=== PATIENT | male | born 1960 | race American Indian/Alaskan Native ===

== ENCOUNTER 2018-01-13 05:09 | Emergency (ER) | payer BC ==
[2018-01-13 05:54] LABS: Basophils % (Auto) 0.3 % (0.0-1.8); Eosinophils # (Auto) 0.1 K/mm3 (0.0-0.4); Eosinophils % (Auto) 1.4 % (0.0-4.3); Hematocrit 42.6 % (35.5-45.6); Hemoglobin 14.4 gm/dl (11.8-15.2); Lymphocytes # (Auto) 1.4 K/mm3 (1.2-5.4); Lymphocytes % (Auto) 30.1 % (13.4-35.0); Mean Corpuscular HGB Conc 34 % (32-34); Mean Corpuscular Hemoglobin 28 pg (28-32); Mean Corpuscular Volume 84 fl (84-94); Monocytes # (Auto) 0.5 K/mm3 (0.0-0.8); Monocytes % (Auto) 11.4 % (0.0-7.3); Platelet Count 206 K/mm3 (140-440); Red Blood Count 5.09 M/mm3 (3.65-5.03); Red Cell Distribution Width 13.4 % (13.2-15.2)
[2018-01-13 06:07] LABS: BUN/Creatinine Ratio 13; Blood Urea Nitrogen 9 mg/dL (9-20); Calcium 8.7 mg/dL (8.4-10.2); Hemolysis Index 9
--- NOTE | 2018-01-13 06:24 | Cat Scan Report ---
FINAL REPORT EXAM: CT HEAD/BRAIN WO CON HISTORY: Fall TECHNIQUE: CT imaging acquired through the head without intravenous contrast. Transaxial reformations are provided. PRIORS: None. FINDINGS: The ventricles, cisterns and sulci are within normal limits. No intraparenchymal or extra-axial mass, hemorrhage, or mass effect. Phipps and white-matter differentiation is within normal limits for patient age. Normal spherical shape of the globes. No significant abnormality involving the imaged portions of the paranasal sinuses and mastoid air cells. No skull or facial fracture visualized. IMPRESSION: No acute intracranial abnormality.
--- NOTE | 2018-01-13 06:49 | XRay Report ---
FINAL REPORT EXAM: XR SPINE LUMBOSACRAL 2-3V HISTORY: fall , reported spine injury 10 years ago TECHNIQUE: Three views lumbar spine performed seated in wheelchair PRIORS: None. FINDINGS: There is rightward convexity of the lumbar spine centered at about L2-L3. Anterior listhesis at L4-L5 without definite spondylolysis. Lower lumbar facet arthropathy is present. Mild lower lumbar intervertebral disc space narrowing and associated endplate spondylosis. Vertebral body heights are preserved. Mild physiologic anterior wedging at T12. No acute fracture identified. IMPRESSION: Vertebral body heights are preserved, and rightward convexity of the lumbar spine and anterior listhesis at L4-L5 are likely chronic in nature. No acute lumbar spine fractures are seen. Consider CT or MRI for further evaluation as warranted.
[2018-01-13] MEDS ORDERED: ULTRAM PO ONE (08:09)
[2018-01-13] MEDS ORDERED: FLEXERIL PO ONE (08:10)
--- NOTE | 2018-01-13 08:15 | Emergency Department Report ---
ED Seizure HPI - General Chief Complaint: Fall Stated Complaint: BACK PAIN Time Seen by Provider: 01/13/18 08:02 Source: patient Mode of arrival: Ambulatory Limitations: No Limitations - History of Present Illness Initial Comments: 57 yo male presents with witnessed seizure. heard patient call out "oh". His eyes rolled back into his head. HE fell to floor with generalized shaking. No urinary incontinence. Shaking lasted 3 minutes. HE was confused after episode. Patient appeared dazed and restless. EMS called by . Elevated BG 225 according to . 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 He took dilatin and phenobarbital at that time. He has not had a sz in 20 years. He does not take any medications. He has chronic back pain in the bilateral flanks, worse with movement with stiffness. Back pain began on Tuesday. Worse after fall/seizure today. He has chronic discomfort due to "ulcers". He changed coverage from [employer] to [employer] in November. No PCP. MD Complaint: seizure -: Sudden, minutes(s) (3) Description of Episode: tonic-clonic movement, post-event confusion Duration of Episode: 3 -: minutes(s) Witnessed:: Yes Trauma: No Seizure History: other (hx of seizures 20 years ago related to drug abuse) Place: home Possible Precipitating Event: none Associated Symptoms: confusion (after the incident) - Related Data Home Medications Medication Instructions Recorded Confirmed Last Taken Omeprazole 1 tab PO DAILY 09/15/16 09/15/16 09/15/16 Ranitidine HCl [Zantac 150 MG TAB] 150 mg PO DAILY 09/15/16 09/15/16 09/15/16 Previous Rx's Medication Instructions Recorded Last Taken Type traMADol [Ultram 50 MG tab] 50 mg PO Q6HR PRN #10 tablet 09/15/16 Unknown Rx Ondansetron [Zofran Odt] 4 mg PO Q8HR PRN #14 tab.rapdis 09/20/17 Unknown Rx Penicillin V Potassium 500 mg PO Q6HR #28 tablet 09/20/17 Unknown Rx traMADol [Ultram] 50 mg PO Q6HR PRN #14 tablet 09/20/17 Unknown Rx HYDROcodone/APAP 5-325 [[place] 1 each PO Q6HR PRN #10 tablet 01/13/18 Unknown Rx 5/325] Omeprazole 40 mg PO DAILY 30 Days #30 02/23/18 Unknown Rx capsule. Pantoprazole [Protonix TAB] 40 mg PO QDAY 30 Days #30 tablet 01/13/18 Unknown Rx Allergies Allergy/AdvReac Type Severity Reaction Status Date / Time No Known Allergies Allergy Verified 09/20/17 16:24 ED Review of Systems ROS: Stated complaint: BACK PAIN Other details as noted in HPI Comment: All other systems reviewed and negative Constitutional: denies: fever, malaise Respiratory: denies: cough Cardiovascular: denies: chest pain ED Past Medical Hx - Past Medical History Additional medical history: stomach ulcer - Social History Smoking Status: Never Smoker Substance Use Type: Alcohol - Medications Home Medications: Home Medications Medication Instructions Recorded Confirmed Last Taken Type Omeprazole 1 tab PO DAILY 09/15/16 09/15/16 09/15/16 History Ranitidine HCl [Zantac 150 MG TAB] 150 mg PO DAILY 09/15/16 09/15/16 09/15/16 History traMADol [Ultram 50 MG tab] 50 mg PO Q6HR PRN #10 tablet 09/15/16 Unknown Rx Ondansetron [Zofran Odt] 4 mg PO Q8HR PRN #14 tab.rapdis 09/20/17 Unknown Rx Penicillin V Potassium 500 mg PO Q6HR #28 tablet 09/20/17 Unknown Rx traMADol [Ultram] 50 mg PO Q6HR PRN #14 tablet 09/20/17 Unknown Rx HYDROcodone/APAP 5-325 [[place] 1 each PO Q6HR PRN #10 tablet 01/13/18 Unknown Rx 5/325] Omeprazole 40 mg PO DAILY 30 Days #30 01/13/18 Unknown Rx capsule. Pantoprazole [Protonix TAB] 40 mg PO QDAY 30 Days #30 tablet 01/13/18 Unknown Rx ED Physical Exam - General Limitations: No Limitations General appearance: alert, in no apparent distress - Head Head exam: Present: atraumatic, normocephalic - Eye Eye exam: Present: normal appearance - ENT ENT exam: Present: normal exam, mucous membranes moist - Neck Neck exam: Present: normal inspection. Absent: meningismus - Respiratory Respiratory exam: Present: normal lung sounds bilaterally. Absent: respiratory distress, wheezes, rales, rhonchi - Cardiovascular Cardiovascular Exam: Present: regular rate, normal rhythm, normal heart sounds. Absent: bradycardia, tachycardia, systolic murmur, diastolic murmur, rubs, gallop - GI/Abdominal GI/Abdominal exam: Present: soft, normal bowel sounds. Absent: distended, tenderness, guarding, rebound - Rectal Rectal exam: Present: deferred - Extremities Exam Extremities exam: Present: normal inspection - Back Exam Back exam: Present: normal inspection, muscle spasm, paraspinal tenderness. Absent: CVA tenderness (R), CVA tenderness (L), vertebral tenderness - Expanded Back Exam Expanded Back exam: Negative Straight Leg Raising: Left, Right - Neurological Exam Neurological exam: Present: alert, oriented X3 - Psychiatric Psychiatric exam: Present: normal affect, normal mood - Skin Skin exam: Present: warm, dry, intact, normal color. Absent: rash ED Course Vital Signs 01/13/18 01/13/18 01/13/18 05:15 07:54 07:55 Temperature 98.3 F Pulse Rate 91 H Respiratory 18 Rate Blood Pressure 119/82 Blood Pressure 150/90 [Left] O2 Sat by Pulse 97 98 98 Oximetry 01/13/18 01/13/18 08:00 08:47 Temperature Pulse Rate Respiratory 18 18 Rate Blood Pressure Blood Pressure [Left] O2 Sat by Pulse 98 Oximetry ED Medical Decision Making - Lab Data Result diagrams: 01/13/18 05:36 01/13/18 05:36 Laboratory Results - last 24 hr 01/13/18 01/13/18 05:36 05:36 WBC 4.8 RBC 5.09 H Hgb 14.4 Hct 42.6 MCV 84 MCH 28 MCHC 34 RDW 13.4 Plt Count 206 Lymph % (Auto) 30.1 [place] % (Auto) 11.4 H Eos % (Auto) 1.4 Baso % (Auto) 0.3 Lymph # 1.4 [place] # 0.5 Eos # 0.1 Baso # 0.0 Seg Neutrophils % 56.8 Seg Neutrophils # 2.7 Sodium 143 Potassium 3.9 Chloride 104.6 Carbon Dioxide 26 Anion Gap 16 BUN 9 Creatinine 0.7 L Estimated GFR > 60 BUN/Creatinine Ratio 13 Glucose 152 H Calcium 8.7 Vital Signs (72 hours) 01/13/18 01/13/18 01/13/18 05:15 07:54 07:55 Temperature 98.3 F Pulse Rate 91 H Respiratory 18 Rate Blood Pressure 119/82 Blood Pressure 150/90 [Left] O2 Sat by Pulse 97 98 98 Oximetry 01/13/18 08:00 Temperature Pulse Rate Respiratory 18 Rate Blood Pressure Blood Pressure [Left] O2 Sat by Pulse 98 Oximetry - EKG Data 01/13/18 09:08 EKG obtained at 0902 Normal sinus rhythm rate of 60 normal axis normal intervals no ST elevation no signs of ischemia no signs of pericarditis - Radiology Data Radiology results: report reviewed - Medical Decision Making Seizure: I spoke with [facility] neurologist Dr. Pickard who recommended oral Dilantin load in the ED. Also recommended Dilantin prescription since apparently it did control his seizures in the past. He recommended outpatient neurology follow-up. Dr. Pickard also told me to inform the patient that he is not allowed to drive for 6 months. I informed patient he is not allowed to swim or cook unattended. He is also should avoid ladders. Patient was very upset about these restrictions especially around driving. He has to support his family financially. I recommended urgent neurology follow-up. I encouraged him to call neurologist today. Musculoskeletal Back pain: norco, flexeril prescriptions PUD: rx: omeprazole and pantoprazole Critical care attestation.: If time is entered above; I have spent that time in minutes in the direct care of this critically ill patient, excluding procedure time. ED Disposition Clinical Impression: Seizure, Back pain Disposition: DC-01 TO HOME OR SELFCARE Is pt being admited?: No Does the pt Need Aspirin: No Condition: Stable Instructions: Recurrent Seizures Adult (ED), Acute Low Back Pain (ED) Additional Instructions: You are not allowed to drive for 6 months or until cleared by a neurologist. You should not swim or cook alone. You should not work at tall heights such as on a ladder, roof. Prescriptions: HYDROcodone/APAP 5-325 [[place] 5/325] 1 each PO Q6HR PRN #10 tablet PRN Reason: Pain Omeprazole 40 mg PO DAILY 30 Days #30 capsule. Pantoprazole [Protonix TAB] 40 mg PO QDAY 30 Days #30 tablet Referrals: PRIMARY CARE, [Primary Care Provider] - 3-5 Days Forms: Work/School Release Form(ED) Time of Disposition: 09:51
--- NOTE | 2018-01-13 09:02 | Cat Scan Report ---
CT LUMBAR SPINE WITHOUT CONTRAST INDICATION: Abnormal x-rays. COMPARISON: Lumbar spine radiographs from earlier today. FINDINGS: Noncontrast axial, sagittal and coronal CT reconstructions through the lumbar spine demonstrate fairly preserved vertebral body stature, alignment and disc heights. Mild L3-L5 degenerative spurring. L5-S1 vacuum disc phenomena noted. Mild T12 degenerative spurring and minimal chronic wedging also incidentally noted. Moderate bilateral L4-5 degenerative changes. Slight SI joint degenerative changes as well, left more than right. Normal paraspinal soft tissues. Few aortoiliac atherosclerotic calcifications. CONCLUSION: No acute lumbar spine CT abnormality with few degenerative changes noted, as described. Please correlate. Thank you for the opportunity to participate in this patient's care.
[2018-01-13] MEDS ORDERED: DILANTIN PO ONE (09:51)
[2018-01-13 10:01] VITALS: BP 123/79
== END 2018-01-13 10:17 | disposition home or self-care (01) ==
LOC: ED 05:09
DX: R56.9 Unspecified convulsions (principal); M54.9 Dorsalgia, unspecified; G89.29 Other chronic pain
CPT/HCPCS: 36415; 70450; 72100; 72131; 80048; 85025; 93005; 93010

== ENCOUNTER 2018-05-16 21:26 | Emergency (ER) | payer OTHER, BC ==
[2018-05-16 21:38] VITALS: BP 126/81
[2018-05-17] MEDS ORDERED: BOOSTRIX IM ONE (02:16)
--- NOTE | 2018-05-17 02:27 | Emergency Department Report ---
ED Extremity Problem HPI - General Chief complaint: Extremity Injury, Lower Stated complaint: STEPPED ON NAIL, LT FOOT Time Seen by Provider: 05/17/18 02:13 Source: patient Mode of arrival: Ambulatory Limitations: No Limitations - History of Present Illness Initial comments: 57-year-old -[place] male comes to the emergency room stating that he stepped on a nail while at work doing his work boots. Patient is requesting a tetanus shot. Patient has no other complaints has no past medical history currently takes no medications on a daily basis. MD Complaint: extremity pain Location: left, lower extremity History of Same: No -: Yes myalgia Radiation: none Severity scale (0 -10): 3 Quality: sharp Consistency: intermittent Improves with: rest Worsens with: weight bearing Associated Symptoms: denies other symptoms - Related Data Home Medications Medication Instructions Recorded Confirmed Last Taken Omeprazole 1 tab PO DAILY 09/15/16 09/15/16 09/15/16 Ranitidine HCl [Zantac 150 MG TAB] 150 mg PO DAILY 09/15/16 09/15/16 09/15/16 Previous Rx's Medication Instructions Recorded Last Taken Type traMADol [Ultram 50 MG tab] 50 mg PO Q6HR PRN #10 tablet 09/15/16 Unknown Rx Ondansetron [Zofran Odt] 4 mg PO Q8HR PRN #14 tab.rapdis 09/20/17 Unknown Rx Penicillin V Potassium 500 mg PO Q6HR #28 tablet 09/20/17 Unknown Rx traMADol [Ultram] 50 mg PO Q6HR PRN #14 tablet 09/20/17 Unknown Rx Cyclobenzaprine [Flexeril] 10 mg PO TID PRN #30 tablet 01/13/18 Unknown Rx HYDROcodone/APAP 5-325 [[place] 1 each PO Q6HR PRN #10 tablet 01/13/18 Unknown Rx 5/325] Omeprazole 40 mg PO DAILY 30 Days #30 01/13/18 Unknown Rx capsule. Pantoprazole [Protonix TAB] 40 mg PO QDAY 30 Days #30 tablet 01/13/18 Unknown Rx Phenytoin Sodium Extended 300 mg PO QHS 30 Days #90 capsule 01/13/18 Unknown Rx [Dilantin] Cephalexin [Keflex] 500 mg PO BID 7 Days #14 capsule 05/17/18 Unknown Rx Allergies Allergy/AdvReac Type Severity Reaction Status Date / Time No Known Allergies Allergy Verified 09/20/17 16:24 ED Review of Systems ROS: Stated complaint: STEPPED ON NAIL, LT FOOT Other details as noted in HPI Comment: All other systems reviewed and negative Musculoskeletal: other ED Past Medical Hx - Past Medical History Previous Medical History?: No Additional medical history: stomach ulcer - Surgical History Past Surgical History?: No - Social History Smoking Status: Current Every Day Smoker Substance Use Type: None - Medications Home Medications: Home Medications Medication Instructions Recorded Confirmed Last Taken Type Omeprazole 1 tab PO DAILY 09/15/16 09/15/16 09/15/16 History Ranitidine HCl [Zantac 150 MG TAB] 150 mg PO DAILY 09/15/16 09/15/16 09/15/16 History traMADol [Ultram 50 MG tab] 50 mg PO Q6HR PRN #10 tablet 09/15/16 Unknown Rx Ondansetron [Zofran Odt] 4 mg PO Q8HR PRN #14 tab.rapdis 09/20/17 Unknown Rx Penicillin V Potassium 500 mg PO Q6HR #28 tablet 09/20/17 Unknown Rx traMADol [Ultram] 50 mg PO Q6HR PRN #14 tablet 09/20/17 Unknown Rx Cyclobenzaprine [Flexeril] 10 mg PO TID PRN #30 tablet 01/13/18 Unknown Rx HYDROcodone/APAP 5-325 [[place] 1 each PO Q6HR PRN #10 tablet 01/13/18 Unknown Rx 5/325] Omeprazole 40 mg PO DAILY 30 Days #30 01/13/18 Unknown Rx capsule. Pantoprazole [Protonix TAB] 40 mg PO QDAY 30 Days #30 tablet 01/13/18 Unknown Rx Phenytoin Sodium Extended 300 mg PO QHS 30 Days #90 capsule 01/13/18 Unknown Rx [Dilantin] Cephalexin [Keflex] 500 mg PO BID 7 Days #14 capsule 05/17/18 Unknown Rx ED Physical Exam - General Limitations: No Limitations General appearance: alert, in no apparent distress - ENT ENT exam: Present: mucous membranes moist - Expanded Lower Extremity Exam Left Foot/Toe exam: Present: puncture wound (left foot between first and second carpal) Neuro vascular tendon exam: Present: no vascular compromise. Absent: abnormal cap refill, extremity cold to touch ED Course Vital Signs 05/16/18 21:36 Temperature 98.4 F Pulse Rate 78 Respiratory 18 Rate Blood Pressure 126/81 O2 Sat by Pulse 100 Oximetry ED Medical Decision Making - Radiology Data Radiology results: report reviewed No bony abnormalities no radial opaque foreign body - Medical Decision Making Assessment evaluated by this provider fast track. Tetanus shot ordered. X-ray of left foot has been ordered. Critical care attestation.: If time is entered above; I have spent that time in minutes in the direct care of this critically ill patient, excluding procedure time. ED Disposition Clinical Impression: Puncture wound of left foot Qualifiers: Encounter type: initial encounter Qualified Code(s): S91.332A - Puncture wound without foreign body, left foot, initial encounter Disposition: TO HOME OR SELFCARE Is pt being admited?: No Does the pt Need Aspirin: No Condition: Stable Instructions: Puncture Wound (ED) Additional Instructions: Please complete antibiotics as prescribed. Please take [id number] Tylenol or Motrin for pain management. If his symptoms persist or gets worse please follow-up with your primary care provider. Prescriptions: Cephalexin [Keflex] 500 mg PO BID 7 Days #14 capsule Referrals: PRIMARY CARE [Primary Care Provider] - 3-5 Days [facility] [Provider Group] - 3-5 Days
--- NOTE | 2018-05-17 02:32 | XRay Report ---
FINAL REPORT EXAM: XR FOOT 2V LT HISTORY: stepped on a nail through his work boots LT FOOT COMPARISON: None available. FINDINGS: Two views of the left foot obtained. Moderate narrowing hypertrophic spurring of the 1st MTP joint. Mild degenerative changes the 5th MTP joint. Tiny plantar calcaneal spur. No acute fracture dislocation. No radiopaque foreign body. IMPRESSION: No acute bony abnormality. No radiopaque foreign body.
== END 2018-05-17 03:10 | disposition home or self-care (01) ==
LOC: ED 21:26
DX: S91.332A Puncture wound without foreign body, left foot, initial encounter (principal); F17.200 Nicotine dependence, unspecified, uncomplicated; W22.8XXA Striking against or struck by other objects, initial encounter; Y93.89 Activity, other specified; Y99.8 Other external cause status; Y92.89 Other specified places as the place of occurrence of the external cause
CPT/HCPCS: 90471; 90715

== ENCOUNTER 2018-06-12 18:23 | Emergency (ER) | payer BC, OTHER ==
[2018-06-12 18:54] VITALS: BP 123/88
[2018-06-12] MEDS ORDERED: REGLAN PO ONE (23:08)
[2018-06-12] MEDS ORDERED: DELTASONE PO ONE (23:08)
[2018-06-12] MEDS ORDERED: ULTRAM PO ONE (23:08)
[2018-06-12] MEDS ORDERED: BENADRYL PO ONE (23:08)
--- NOTE | 2018-06-12 23:33 | Emergency Department Report ---
ED Animal Bite HPI - General Chief Complaint: Animal Bite Stated Complaint: GOT BITE BY SPIDER AT WORK Time Seen by Provider: 06/12/18 23:08 Source: patient Mode of arrival: Ambulatory Limitations: No Limitations - History of Present Illness Initial Comments: Patient's age 7-year-old -[place] male status post spider versus insect sting, states burning itching and swelling shortness of breath no wheezing no dizziness no lightheadedness or nausea vomiting . Pain is 4/10 relieved by nothing exacerbated by nothing. Complaint: other (insect sting /bite) Onset/Timin -: days(s) Location: back Animal: other (spider) Animal Control Notified: No Mechanism: other (sting/bite ) Pain Description: sharp, burning Severity scale (0 -10): 4 Context: other Associated Symptoms: rash. denies: erythema, discharge from wound, bleeding, fever, loss of consciousness, cough, headache, diaphoresis, shortness of breath - Related Data Patient Tetanus UTD: Yes Home Medications Medication Instructions Recorded Confirmed Last Taken Omeprazole 1 tab PO DAILY 09/15/16 09/15/16 09/15/16 Ranitidine HCl [Zantac 150 MG TAB] 150 mg PO DAILY 09/15/16 09/15/16 09/15/16 Previous Rx's Medication Instructions Recorded Last Taken Type traMADol [Ultram 50 MG tab] 50 mg PO Q6HR PRN #10 tablet 09/15/16 Unknown Rx Ondansetron [Zofran Odt] 4 mg PO Q8HR PRN #14 tab.rapdis 09/20/17 Unknown Rx Penicillin V Potassium 500 mg PO Q6HR #28 tablet 09/20/17 Unknown Rx traMADol [Ultram] 50 mg PO Q6HR PRN #14 tablet 09/20/17 Unknown Rx Cyclobenzaprine [Flexeril] 10 mg PO TID PRN #30 tablet 01/13/18 Unknown Rx HYDROcodone/APAP 5-325 [[place] 1 each PO Q6HR PRN #10 tablet 01/13/18 Unknown Rx 5/325] Omeprazole 40 mg PO DAILY 30 Days #30 01/13/18 Unknown Rx capsule. Pantoprazole [Protonix TAB] 40 mg PO QDAY 30 Days #30 tablet 01/13/18 Unknown Rx Phenytoin Sodium Extended 300 mg PO QHS 30 Days #90 capsule 01/13/18 Unknown Rx [Dilantin] Cephalexin [Keflex] 500 mg PO BID 7 Days #14 capsule 05/17/18 Unknown Rx Metoclopramide [Reglan] 10 mg PO TID #21 tab 06/12/18 Unknown Rx diphenhydrAMINE [Benadryl CAP] 25 mg PO Q8HR PRN #21 capsule 06/12/18 Unknown Rx predniSONE [Deltasone] 40 mg PO QDAY #10 tab 06/12/18 Unknown Rx Allergies Allergy/AdvReac Type Severity Reaction Status Date / Time No Known Allergies Allergy Verified 06/12/18 18:54 ED Review of Systems ROS: Stated complaint: GOT BITE BY SPIDER AT WORK Other details as noted in HPI Constitutional: denies: chills, fever Eyes: denies: eye pain, eye discharge, vision change ENT: denies: ear pain, throat pain Respiratory: denies: cough, shortness of breath, wheezing Cardiovascular: denies: chest pain, palpitations Endocrine: no symptoms reported Gastrointestinal: denies: abdominal pain, nausea, diarrhea Genitourinary: denies: urgency, dysuria Musculoskeletal: denies: back pain, joint swelling, arthralgia Skin: lesions (insect sting back ), pruritus Neurological: denies: headache, weakness, paresthesias Psychiatric: denies: anxiety, depression Hematological/Lymphatic: denies: easy bleeding, easy bruising ED Past Medical Hx - Past Medical History Previous Medical History?: No Additional medical history: stomach ulcer - Surgical History Past Surgical History?: Yes Additional Surgical History: R thumb - Social History Smoking Status: Current Every Day Smoker Substance Use Type: None - Medications Home Medications: Home Medications Medication Instructions Recorded Confirmed Last Taken Type Omeprazole 1 tab PO DAILY 09/15/16 09/15/16 09/15/16 History Ranitidine HCl [Zantac 150 MG TAB] 150 mg PO DAILY 09/15/16 09/15/16 09/15/16 History traMADol [Ultram 50 MG tab] 50 mg PO Q6HR PRN #10 tablet 09/15/16 Unknown Rx Ondansetron [Zofran Odt] 4 mg PO Q8HR PRN #14 tab.rapdis 09/20/17 Unknown Rx Penicillin V Potassium 500 mg PO Q6HR #28 tablet 09/20/17 Unknown Rx traMADol [Ultram] 50 mg PO Q6HR PRN #14 tablet 09/20/17 Unknown Rx Cyclobenzaprine [Flexeril] 10 mg PO TID PRN #30 tablet 01/13/18 Unknown Rx HYDROcodone/APAP 5-325 [[place] 1 each PO Q6HR PRN #10 tablet 01/13/18 Unknown Rx 5/325] Omeprazole 40 mg PO DAILY 30 Days #30 01/13/18 Unknown Rx capsule.dr Pantoprazole [Protonix TAB] 40 mg PO QDAY 30 Days #30 tablet 01/13/18 Unknown Rx Phenytoin Sodium Extended 300 mg PO QHS 30 Days #90 capsule 01/13/18 Unknown Rx [Dilantin] Cephalexin [Keflex] 500 mg PO BID 7 Days #14 capsule 05/17/18 Unknown Rx Metoclopramide [Reglan] 10 mg PO TID #21 tab 06/12/18 Unknown Rx diphenhydrAMINE [Benadryl CAP] 25 mg PO Q8HR PRN #21 capsule 06/12/18 Unknown Rx predniSONE [Deltasone] 40 mg PO QDAY #10 tab 06/12/18 Unknown Rx ED Physical Exam - General Limitations: No Limitations General appearance: alert, in no apparent distress - Head Head exam: Present: atraumatic, normocephalic - Eye Eye exam: Present: normal appearance - ENT ENT exam: Present: mucous membranes moist - Neck Neck exam: Present: normal inspection - Respiratory Respiratory exam: Present: normal lung sounds bilaterally. Absent: respiratory distress - Cardiovascular Cardiovascular Exam: Present: regular rate, normal rhythm. Absent: systolic murmur, diastolic murmur, rubs, gallop - GI/Abdominal GI/Abdominal exam: Present: soft, normal bowel sounds - Rectal Rectal exam: Present: deferred - Extremities Exam Extremities exam: Present: normal inspection, full ROM, normal capillary refill. Absent: tenderness, pedal edema, joint swelling, calf tenderness - Back Exam Back exam: Present: normal inspection, tenderness, rash noted (right lateral midback mild erythema mild swelling no drainage no fever ). Absent: CVA tenderness (R), CVA tenderness (L), muscle spasm, paraspinal tenderness, vertebral tenderness - Neurological Exam Neurological exam: Present: alert, oriented X3, CN II-XII intact, normal gait, reflexes normal. Absent: motor sensory deficit - Psychiatric Psychiatric exam: Present: normal affect, normal mood - Skin Skin exam: Present: warm, dry, intact, normal color, rash, erythema (mild erythema swelling less 1 cm pruritis no drainage no fever ), urticaria. Absent : cyanosis, diaphoretic, vesicles, petechiae, pallor, abrasion, ecchymosis ED Course Vital Signs 06/12/18 18:51 Temperature 98.5 F Pulse Rate 68 Respiratory 16 Rate Blood Pressure 123/88 O2 Sat by Pulse 99 Oximetry Critical care attestation.: If time is entered above; I have spent that time in minutes in the direct care of this critically ill patient, excluding procedure time. ED Disposition Clinical Impression: Insect bite or sting Disposition: - TO HOME OR SELFCARE Is pt being admited?: No Does the pt Need Aspirin: No Condition: Good Instructions: Insect Bite or Sting (ED) Prescriptions: diphenhydrAMINE [Benadryl CAP] 25 mg PO Q8HR PRN #21 capsule PRN Reason: itching allergies Metoclopramide [Reglan] 10 mg PO TID #21 tab predniSONE [Deltasone] 40 mg PO QDAY #10 tab Referrals: [facility] [Outside] - 3-5 Days Forms: Work/School Release Form(ED) Time of Disposition: 23:38
== END 2018-06-12 23:45 | disposition home or self-care (01) ==
LOC: ED 18:23
DX: T63.301A Toxic effect of unspecified spider venom, accidental (unintentional), initial encounter (principal); F17.200 Nicotine dependence, unspecified, uncomplicated; Y93.89 Activity, other specified; Y99.0 Civilian activity done for income or pay; Y92.89 Other specified places as the place of occurrence of the external cause
CPT/HCPCS: 99282; J7512; 99283

== ENCOUNTER 2022-03-08 05:56 | Emergency (ER) | payer SELFPAY ==
[2022-03-08] MEDS ORDERED: FLUORESCEIN 1 MG STRIP OP ONE (10:00)
[2022-03-08] MEDS ORDERED: TETRACAINE 0.5% OPHTH SOLN 4ML OU ONE (10:00)
--- NOTE | 2022-03-08 10:00 | Emergency Department Report ---
ED Eye Problem HPI - General Chief complaint: Eye Problems Stated complaint: EYE ISSUES Time Seen by Provider: 03/08/22 09:52 Source: patient Mode of arrival: Ambulatory Limitations: No Limitations - History of Present Illness Initial comments: Patient is a 61-year-old male that comes to the emergency room with a red left eye. He states he noticed it after leaving [place] on Tuesday. He denies any trauma. He has no contact lenses or lens implants. He has no tearing. His vision is normal. He has no pain in the ER. Patient is not on blood thinners. chief complaint: eye redness -: Sudden, days(s) Place: home If Injury: none Associated Symptoms: none Treatments Prior to Arrival: none - Related Data Home Medications Medication Instructions Recorded Confirmed Last Taken Omeprazole 1 tab PO DAILY 09/15/16 09/15/16 09/15/16 raNITIdine HCl [Zantac 150 MG TAB] 150 mg PO DAILY 09/15/16 09/15/16 09/15/16 Previous Rx's Medication Instructions Recorded Last Taken Type traMADoL [Ultram 50 MG tab] 50 mg PO Q6HR PRN #10 tablet 09/15/16 Unknown Rx Ondansetron [Zofran Odt] 4 mg PO Q8HR PRN #14 tab.rapdis 09/20/17 Unknown Rx Penicillin V Potassium 500 mg PO Q6HR #28 tablet 09/20/17 Unknown Rx traMADoL [Ultram] 50 mg PO Q6HR PRN #14 tablet 09/20/17 Unknown Rx Cyclobenzaprine [Flexeril] 10 mg PO TID PRN #30 tablet 01/13/18 Unknown Rx HYDROcodone/APAP 5-325 [[place] 1 each PO Q6HR PRN #10 tablet 01/13/18 Unknown Rx 5/325] Omeprazole 40 mg PO DAILY 30 Days #30 01/13/18 Unknown Rx capsule. Pantoprazole [Protonix TAB] 40 mg PO QDAY 30 Days #30 tablet 01/13/18 Unknown Rx Phenytoin Sodium Extended 300 mg PO QHS 30 Days #90 capsule 01/13/18 Unknown Rx [Dilantin] cephALEXin [Keflex] 500 mg PO BID 7 Days #14 capsule 05/17/18 Unknown Rx Metoclopramide [Reglan] 10 mg PO TID #21 tab 06/12/18 Unknown Rx diphenhydrAMINE [Benadryl CAP] 25 mg PO Q8HR PRN #21 capsule 06/12/18 Unknown Rx predniSONE [Deltasone] 40 mg PO QDAY #10 tab 06/12/18 Unknown Rx Erythromycin [Erythromycin Ophth 0.5 inch OS Q4H #5 day 03/08/22 Unknown Rx Oint] Allergies Allergy/AdvReac Type Severity Reaction Status Date / Time No Known Allergies Allergy Verified 06/12/18 18:54 ED Review of Systems ROS: Stated complaint: EYE ISSUES Other details as noted in HPI Comment: All other systems reviewed and negative ED Past Medical Hx - Past Medical History Previous Medical History?: Yes Additional medical history: stomach ulcer - Surgical History Past Surgical History?: Yes Additional Surgical History: R thumb - Family History Family history: no significant - Social History Smoking Status: Current Every Day Smoker Substance Use Type: None - Medications Home Medications: Home Medications Medication Instructions Recorded Confirmed Last Taken Type Omeprazole 1 tab PO DAILY 09/15/16 09/15/16 09/15/16 History raNITIdine HCl [Zantac 150 MG TAB] 150 mg PO DAILY 09/15/16 09/15/16 09/15/16 History traMADoL [Ultram 50 MG tab] 50 mg PO Q6HR PRN #10 tablet 09/15/16 Unknown Rx Ondansetron [Zofran Odt] 4 mg PO Q8HR PRN #14 tab.rapdis 09/20/17 Unknown Rx Penicillin V Potassium 500 mg PO Q6HR #28 tablet 09/20/17 Unknown Rx traMADoL [Ultram] 50 mg PO Q6HR PRN #14 tablet 09/20/17 Unknown Rx Cyclobenzaprine [Flexeril] 10 mg PO TID PRN #30 tablet 01/13/18 Unknown Rx HYDROcodone/APAP 5-325 [[place] 1 each PO Q6HR PRN #10 tablet 01/13/18 Unknown Rx 5/325] Omeprazole 40 mg PO DAILY 30 Days #30 01/13/18 Unknown Rx capsule. Pantoprazole [Protonix TAB] 40 mg PO QDAY 30 Days #30 tablet 01/13/18 Unknown Rx Phenytoin Sodium Extended 300 mg PO QHS 30 Days #90 capsule 01/13/18 Unknown Rx [Dilantin] cephALEXin [Keflex] 500 mg PO BID 7 Days #14 capsule 05/17/18 Unknown Rx Metoclopramide [Reglan] 10 mg PO TID #21 tab 06/12/18 Unknown Rx diphenhydrAMINE [Benadryl CAP] 25 mg PO Q8HR PRN #21 capsule 06/12/18 Unknown Rx predniSONE [Deltasone] 40 mg PO QDAY #10 tab 06/12/18 Unknown Rx Erythromycin [Erythromycin Ophth 0.5 inch OS Q4H #5 day 03/08/22 Unknown Rx Oint] ED Physical Exam - General Limitations: No Limitations General appearance: alert, in no apparent distress - Head Head exam: Present: atraumatic, normocephalic - Eye Eye exam: Present: normal appearance, PERRL, EOMI - Expanded Eye Exam Expanded Eyelids: Erythema: Left Sclera/Conjunctival: Hemorrhage: Left - ENT ENT exam: Present: mucous membranes moist - Neck Neck exam: Present: normal inspection - Respiratory Respiratory exam: Present: normal lung sounds bilaterally. Absent: respiratory distress - Cardiovascular Cardiovascular Exam: Present: regular rate, normal rhythm. Absent: systolic murmur, diastolic murmur, rubs, gallop - GI/Abdominal GI/Abdominal exam: Present: soft, normal bowel sounds - Rectal Rectal exam: Present: deferred - Extremities Exam Extremities exam: Present: normal inspection - Back Exam Back exam: Present: normal inspection - Neurological Exam Neurological exam: Present: alert, oriented X3 - Psychiatric Psychiatric exam: Present: normal affect, normal mood - Skin Skin exam: Present: warm, dry, intact, normal color. Absent: rash ED Course Vital Signs 03/08/22 03/08/22 06:00 11:21 Temperature 98.2 F Pulse Rate 68 54 L Respiratory 18 15 Rate Blood Pressure 128/79 Blood Pressure 125/80 [Right] O2 Sat by Pulse 100 100 Oximetry ED Medical Decision Making - Medical Decision Making Vital Signs 03/08/22 03/08/22 06:00 11:21 Temperature 98.2 F Pulse Rate 68 54 L Respiratory 18 15 Rate Blood Pressure 128/79 Blood Pressure 125/80 [Right] O2 Sat by Pulse 100 100 Oximetry RNs have been asked to do visual acuity. No increased fluorescein stain uptake on exam. No foreign body noted Patient has a subconjunctival hemorrhage of the left eye. Patient being discharged home with discharge plan of care including diet, activities, medications and follow-up. He verbalizes understanding of discharge plan. - Differential Diagnosis Some conjunctival hemorrhage first conjunctivitis versus abrasion versus fb Critical care attestation.: If time is entered above; I have spent that time in minutes in the direct care of this critically ill patient, excluding procedure time. ED Disposition Clinical Impression: Subconjunctival hemorrhage Qualifiers: Laterality: left Qualified Code(s): H11.32 - Conjunctival hemorrhage, left eye Disposition: HOME / SELF CARE / HOMELESS Is pt being admited?: No Does the pt Need Aspirin: No Condition: Stable Instructions: Subconjunctival Hemorrhage Additional Instructions: Medication as ordered today Follow-up with eye doctor if you have any problems. Referral below Warm compresses will help Motrin or Tylenol for pain Try not to rub your eye Prescriptions: Erythromycin [Erythromycin Ophth Oint] 0.5 inch OS Q4H #5 day Referrals: PONCHO PEDERSEN MD [Primary Care Provider] - 3-5 Days MIKE LIVINGSTON MD [Staff Physician] - 3-5 Days Forms: Work/School Release Form(ED) Time of Disposition: 11:01
[2022-03-08] MEDS ORDERED: ERYTHROMYCIN 5 MG/1 GM OPHTH OINT OS SCH (10:30)
[2022-03-08 11:22] VITALS: BP 125/80
== END 2022-03-08 12:46 | disposition home or self-care (01) ==
LOC: ED 05:56
DX: H11.32 Conjunctival hemorrhage, left eye (principal); F17.200 Nicotine dependence, unspecified, uncomplicated; Z79.899 Other long term (current) drug therapy
CPT/HCPCS: 99282; 99283

== ENCOUNTER 2022-04-18 11:03 | Emergency (ER) | payer SELFPAY ==
[2022-04-18 11:32] VITALS: BP 117/88
[2022-04-18 12:17] LABS: Bilirubin,Urine NEG (Negative); Blood,Urine NEG (Negative); Color,Urine Yellow (Yellow); Mucus,Urine FEW /HPF; Protein,Urine <15 mg/dL mg/dL (Negative); Urobilinogen,Urine < 2.0 mg/dL (<2.0)
[2022-04-18 13:14] LABS: Basophils % (Auto) 0.1 % (0.0-1.8); Eosinophils # (Auto) 0.1 K/mm3 (0.0-0.4); Eosinophils % (Auto) 1.9 % (0.0-4.3); Hematocrit 43.2 % (35.5-45.6); Hemoglobin 14.3 gm/dl (11.8-15.2); Lymphocytes % (Auto) 39.9 % (13.4-35.0); Mean Corpuscular HGB Conc 33 % (32-34); Mean Corpuscular Volume 86 fl (84-94); Monocytes # (Auto) 0.4 K/mm3 (0.0-0.8); Monocytes % (Auto) 8.1 % (0.0-7.3); Platelet Count 229 K/mm3 (140-440); Red Blood Count 5.05 M/mm3 (3.65-5.03); Red Cell Distribution Width 13.3 % (13.2-15.2)
[2022-04-18 13:33] LABS: Alanine Aminotransferase 18 units/L (7-56); Albumin 4.5 g/dL (3.9-5); Blood Urea Nitrogen 15 mg/dL (9-20); Calcium 9.1 mg/dL (8.4-10.2); Hemolysis Index 7
[2022-04-18 13:43] LABS: BUN/Creatinine Ratio 21
--- NOTE | 2022-04-18 13:57 | Emergency Department Report ---
ED Male HPI - General Chief complaint: Urogenital-Male Stated complaint: ABD PAIN/BURNING ON URINATION Time Seen by Provider: 04/18/22 11:34 Source: patient Mode of arrival: Ambulatory Limitations: No Limitations - History of Present Illness Initial comments: This is a 61-year-old male nontoxic, well nourished in appearance, no acute signs of distress presents to the ED with c/o of dysuria and urinary frequency x several days. Patient also stated the past several months had unintentional weight loss. Patient denies any penile discharge, bleeding, ulcers or lesions. Patient denies any back pain. Patient denies any lower or abdominal pain. Patient denies any nausea, vomiting, chest pain, shortness of breathe, fever, chills, headache, back pain, numbness, tingling, stiff neck. Patient denies any other urinary symptoms. Patient denies any allergies or PMH. MD Complaint: dysuria -: days(s) Radiation: none Severity: mild Severity scale (0 -10): 3 Quality: burning Consistency: intermittent Improves with: none Worsens with: urination dysuria. denies: discharge, swelling, mass, rash, urinary retention, blood in urine, fever, nausea/vomiting, incontinence - Related Data Home Medications Medication Instructions Recorded Confirmed Last Taken Omeprazole 1 tab PO DAILY 09/15/16 09/15/16 09/15/16 raNITIdine HCl [Zantac 150 MG TAB] 150 mg PO DAILY 09/15/16 09/15/16 09/15/16 Previous Rx's Medication Instructions Recorded Last Taken Type traMADoL [Ultram 50 MG tab] 50 mg PO Q6HR PRN #10 tablet 09/15/16 Unknown Rx Ondansetron [Zofran Odt] 4 mg PO Q8HR PRN #14 tab.rapdis 09/20/17 Unknown Rx Penicillin V Potassium 500 mg PO Q6HR #28 tablet 09/20/17 Unknown Rx traMADoL [Ultram] 50 mg PO Q6HR PRN #14 tablet 09/20/17 Unknown Rx Cyclobenzaprine [Flexeril] 10 mg PO TID PRN #30 tablet 01/13/18 Unknown Rx HYDROcodone/APAP 5-325 [[place] 1 each PO Q6HR PRN #10 tablet 01/13/18 Unknown Rx 5/325] Omeprazole 40 mg PO DAILY 30 Days #30 01/13/18 Unknown Rx capsule. Pantoprazole [Protonix TAB] 40 mg PO QDAY 30 Days #30 tablet 01/13/18 Unknown Rx Phenytoin Sodium Extended 300 mg PO QHS 30 Days #90 capsule 01/13/18 Unknown Rx [Dilantin] cephALEXin [Keflex] 500 mg PO BID 7 Days #14 capsule 05/17/18 Unknown Rx Metoclopramide [Reglan] 10 mg PO TID #21 tab 06/12/18 Unknown Rx diphenhydrAMINE [Benadryl CAP] 25 mg PO Q8HR PRN #21 capsule 06/12/18 Unknown Rx predniSONE [Deltasone] 40 mg PO QDAY #10 tab 06/12/18 Unknown Rx Erythromycin [Erythromycin Ophth 0.5 inch OS Q4H #5 day 03/08/22 Unknown Rx Oint] Allergies Allergy/AdvReac Type Severity Reaction Status Date / Time No Known Allergies Allergy Verified 06/12/18 18:54 ED Review of Systems ROS: Stated complaint: ABD PAIN/BURNING ON URINATION Other details as noted in HPI Comment: All other systems reviewed and negative Constitutional: denies: chills, fever Eyes: denies: eye pain, eye discharge, vision change ENT: denies: ear pain, throat pain Respiratory: denies: cough, shortness of breath, wheezing Cardiovascular: denies: chest pain, palpitations Endocrine: no symptoms reported Gastrointestinal: denies: abdominal pain, nausea, diarrhea Genitourinary: dysuria, frequency. denies: urgency, hematuria, discharge, testicular pain, testicular mass Musculoskeletal: denies: back pain, joint swelling, arthralgia Skin: denies: rash, lesions Neurological: denies: headache, weakness, paresthesias Psychiatric: denies: anxiety, depression Hematological/Lymphatic: denies: easy bleeding, easy bruising ED Past Medical Hx - Past Medical History Previous Medical History?: Yes Additional medical history: stomach ulcer, GERD - Surgical History Additional Surgical History: R thumb - Social History Smoking Status: Current Every Day Smoker - Medications Home Medications: Home Medications Medication Instructions Recorded Confirmed Last Taken Type Omeprazole 1 tab PO DAILY 09/15/16 09/15/16 09/15/16 History raNITIdine HCl [Zantac 150 MG TAB] 150 mg PO DAILY 09/15/16 09/15/16 09/15/16 History traMADoL [Ultram 50 MG tab] 50 mg PO Q6HR PRN #10 tablet 09/15/16 Unknown Rx Ondansetron [Zofran Odt] 4 mg PO Q8HR PRN #14 tab.rapdis 09/20/17 Unknown Rx Penicillin V Potassium 500 mg PO Q6HR #28 tablet 09/20/17 Unknown Rx traMADoL [Ultram] 50 mg PO Q6HR PRN #14 tablet 09/20/17 Unknown Rx Cyclobenzaprine [Flexeril] 10 mg PO TID PRN #30 tablet 01/13/18 Unknown Rx HYDROcodone/APAP 5-325 [[place] 1 each PO Q6HR PRN #10 tablet 01/13/18 Unknown Rx 5/325] Omeprazole 40 mg PO DAILY 30 Days #30 01/13/18 Unknown Rx capsule. Pantoprazole [Protonix TAB] 40 mg PO QDAY 30 Days #30 tablet 01/13/18 Unknown Rx Phenytoin Sodium Extended 300 mg PO QHS 30 Days #90 capsule 01/13/18 Unknown Rx [Dilantin] cephALEXin [Keflex] 500 mg PO BID 7 Days #14 capsule 05/17/18 Unknown Rx Metoclopramide [Reglan] 10 mg PO TID #21 tab 06/12/18 Unknown Rx diphenhydrAMINE [Benadryl CAP] 25 mg PO Q8HR PRN #21 capsule 06/12/18 Unknown Rx predniSONE [Deltasone] 40 mg PO QDAY #10 tab 06/12/18 Unknown Rx Erythromycin [Erythromycin Ophth 0.5 inch OS Q4H #5 day 03/08/22 Unknown Rx Oint] ED Physical Exam - General Limitations: No Limitations General appearance: alert, in no apparent distress - Head Head exam: Present: atraumatic, normocephalic - Eye Eye exam: Present: normal appearance - Neck Neck exam: Present: normal inspection, full ROM. Absent: lymphadenopathy - Respiratory Respiratory exam: Absent: respiratory distress - Cardiovascular Cardiovascular Exam: Present: normal rhythm - GI/Abdominal GI/Abdominal exam: Present: soft, normal bowel sounds. Absent: distended, tenderness, guarding, rebound, rigid, diminished bowel sounds - Extremities Exam Extremities exam: Present: normal inspection, full ROM, normal capillary refill. Absent: tenderness - Back Exam Back exam: Present: normal inspection, full ROM. Absent: tenderness, CVA ten derness (R), CVA tenderness (L), muscle spasm, paraspinal tenderness, vertebral tenderness, rash noted - Neurological Exam Neurological exam: Present: alert, oriented X3, normal gait - Psychiatric Psychiatric exam: Present: normal affect, normal mood - Skin Skin exam: Present: warm, dry, intact, normal color. Absent: rash ED Course Vital Signs 04/18/22 11:25 Temperature 97.8 F Pulse Rate 65 Respiratory 12 Rate Blood Pressure 117/88 O2 Sat by Pulse 100 Oximetry - Reevaluation(s) Reevaluation #1: 04/18/22 13:55 Patient is speaking in full sentences with no signs of distress noted. ED Medical Decision Making - Lab Data Result diagrams: 04/18/22 12:00 04/18/22 12:00 Lab Results 04/18/22 04/18/22 04/18/22 Range/Units 11:39 12:00 12:00 WBC 5.0 (4.5-11.0) K/mm3 RBC 5.05 H (3.65-5.03) M/mm3 Hgb 14.3 (11.8-15.2) gm/dl Hct 43.2 (35.5-45.6) % MCV 86 (84-94) fl MCH 28 (28-32) pg MCHC 33 (32-34) % RDW 13.3 (13.2-15.2) % Plt Count 229 (140-440) K/mm3 Lymph % (Auto) 39.9 H (13.4-35.0) % Lewis % (Auto) 8.1 H (0.0-7.3) % Eos % (Auto) 1.9 (0.0-4.3) % Baso % (Auto) 0.1 (0.0-1.8) % Lymph # (Auto) 2.0 (1.2-5.4) K/mm3 Lewis # (Auto) 0.4 (0.0-0.8) K/mm3 Eos # (Auto) 0.1 (0.0-0.4) K/mm3 Baso # (Auto) 0.0 (0.0-0.1) K/mm3 Seg Neutrophils % 50.0 (40.0-70.0) % Seg Neutrophils # 2.5 (1.8-7.7) K/mm3 Sodium 138 (137-145) mmol/L Potassium 4.7 (3.6-5.0) mmol/L Chloride 103.2 (98-107) mmol/L Carbon Dioxide 26 (22-30) mmol/L Anion Gap 14 mmol/L BUN 15 (9-20) mg/dL Creatinine 0.7 L (0.8-1.3) mg/dL Estimated GFR > 60 ml/min BUN/Creatinine Ratio 21 % Glucose 135 H (75-100) mg/dL Calcium 9.1 (8.4-10.2) mg/dL Total Bilirubin 0.30 (0.1-1.2) mg/dL AST 23 (5-40) units/L ALT 18 (7-56) units/L Alkaline Phosphatase 56 (35-129) units/L Total Protein 7.4 (6.3-8.2) g/dL Albumin 4.5 (3.9-5) g/dL Albumin/Globulin Ratio 1.6 % Urine Color Yellow (Yellow) Urine Turbidity Clear (Clear) Urine pH 6.0 (5.0-7.0) Ur Specific [place] 1.016 (1.003-1.030) Urine Protein <15 mg/dl (Negative) mg/dL Urine Glucose (UA) Neg (Negative) mg/dL Urine Ketones Neg (Negative) mg/dL Urine Blood Neg (Negative) Urine Nitrite Neg (Negative) Urine Bilirubin Neg (Negative) Urine Urobilinogen < 2.0 (<2.0) mg/dL Ur Leukocyte Esterase Neg (Negative) Urine WBC (Auto) 6.0 (0.0-6.0) /HPF Urine RBC (Auto) 2.0 (0.0-6.0) /HPF Urine Mucus Few /HPF - Medical Decision Making 61-year-old male that presents with dysuria. Patient is stable and was examined by me. Patient does not have any CVA tenderness. No signs or symptoms of pyelonephritis. Pending GC results and instructed patient to return in 3-5 days for results. Patient was instructed to Follow-up with a primary care doctor in 3-5 days or if symptoms worsen and continue return to emergency room as soon as possible. At time of discharge, the patient does not seem toxic or ill in appearance. No acute signs of distress noted. Patient agrees to discharge treatment plan of care. No further questions noted by the patient. Critical care attestation.: If time is entered above; I have spent that time in minutes in the direct care of this critically ill patient, excluding procedure time. ED Disposition Clinical Impression: Dysuria, Urinary frequency, Weight loss Disposition: 01 HOME / SELF CARE / HOMELESS Is pt being admited?: No Does the pt Need Aspirin: No Condition: Stable Instructions: Dysuria Additional Instructions: Follow-up with a primary care doctor in 3-5 days or if symptoms worsen and continue return to emergency room as soon as possible. Referrals: PRIMARY MD MARLENI [Referring] - 3-5 Days PONCHO PEDERSEN MD [Staff Physician] - 3-5 Days Time of Disposition: 13:57
== END 2022-04-18 14:00 | disposition home or self-care (01) ==
LOC: ED 11:03
DX: R30.0 Dysuria (principal); R39.15 Urgency of urination; R35.0 Frequency of micturition; R63.4 Abnormal weight loss; K21.9 Gastro-esophageal reflux disease without esophagitis; F17.200 Nicotine dependence, unspecified, uncomplicated; Z79.899 Other long term (current) drug therapy
CPT/HCPCS: 36415; 80053; 81001; 85025; 87591; 99283

== ENCOUNTER 2022-04-21 15:32 | Outpatient (CLI) | payer OTHER ==
--- NOTE | 2022-04-21 16:44 | XRay Report ---
XR foot 2V LT INDICATION / CLINICAL INFORMATION: LEFT FOOT SWELLING. COMPARISON: None available. FINDINGS: BONES/JOINT(S): No acute fracture or subluxation. 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 No focal bone erosions or focal osteopenia to suggest inflammatory arthropathy. SOFT TISSUES: No significant abnormality. ADDITIONAL FINDINGS: None. Signer Name: David Brooks MD Signed: 04/21/2022 4:39 PM Workstation Name: [id number]
--- NOTE | 2022-04-21 16:44 | XRay Report ---
LUMBAR SPINE 5 VIEWS INDICATION / CLINICAL INFORMATION: LOWER SPINE PAIN. COMPARISON: None available. FINDINGS: BONES / JOINT(S): No acute fracture or subluxation. Moderate generalized spondylosis with grade 1 deg enerative anterolisthesis at L4-5. SOFT TISSUES: No significant abnormality. ADDITIONAL FINDINGS: None. Signer Name: David Brooks MD Signed: 04/21/2022 4:39 PM Workstation Name: [id number]
== END 2022-04-21 15:33 | disposition home or self-care (01) ==
LOC: XRAY 15:32
PROVIDERS: ATTEND Internal Medicine
DX: M19.072 Primary osteoarthritis, left ankle and foot (principal); M47.816 Spondylosis without myelopathy or radiculopathy, lumbar region
CPT/HCPCS: 72110

== ENCOUNTER 2022-05-23 13:55 | Emergency (ER) | payer SELFPAY ==
[2022-05-23 15:19] VITALS: BP 125/86
--- NOTE | 2022-05-23 15:28 | Event Note ---
ED Screening Note Date of service: 05/23/22 Time: 15:27 ED Screening Note: Patient presents with complaints of frequency in urination, weight loss, excessive thirst, bodyaches and pain for more than 2 weeks States history of diabetes and discontinue taking his metformin No chest pain or shortness of breath per patient Denies fever This initial assessment/diagnostic orders/clinical plan/treatment(s) is/are subject to change based on patients health status, clinical progression and re-assessment by fellow clinical providers in the ED. Further treatment and workup at subsequent clinical providers discretion. Patient/guardian urged not to elope from the ED as their condition may be serious if not clinically assessed and managed. Initial orders include: Labs
[2022-05-23 16:03] LABS: Basophils % (Auto) 0.5 % (0.0-1.8); Eosinophils # (Auto) 0.1 K/mm3 (0.0-0.4); Eosinophils % (Auto) 2.3 % (0.0-4.3); Hematocrit 42.4 % (35.5-45.6); Hemoglobin 14.3 gm/dl (11.8-15.2); Lymphocytes # (Auto) 1.8 K/mm3 (1.2-5.4); Lymphocytes % (Auto) 42.9 % (13.4-35.0); Mean Corpuscular HGB Conc 34 % (32-34); Mean Corpuscular Volume 86 fl (84-94); Monocytes # (Auto) 0.5 K/mm3 (0.0-0.8); Monocytes % (Auto) 11.6 % (0.0-7.3); Platelet Count 212 K/mm3 (140-440); Red Blood Count 4.96 M/mm3 (3.65-5.03); Red Cell Distribution Width 13.1 % (13.2-15.2)
[2022-05-23 16:26] LABS: Alanine Aminotransferase 24 units/L (7-56); Albumin 4.6 g/dL (3.9-5); BUN/Creatinine Ratio 23; Blood Urea Nitrogen 18 mg/dL (9-20); Calcium 9.4 mg/dL (8.4-10.2); Hemolysis Index 8
[2022-05-23 16:55] LABS: Bilirubin,Urine Negative (Negative); Blood,Urine Negative (Negative); Color,Urine Straw (Yellow); Protein,Urine <15 mg/dL mg/dL (Negative); Urobilinogen,Urine < 2.0 mg/dL (<2.0)
--- NOTE | 2022-05-23 20:37 | Emergency Department Report ---
ED General Adult HPI - General Chief complaint: Medical Clearance Stated complaint: CRAMPS/WEIGHT LOSS/FREQUENT URINATION Time Seen by Provider: 05/23/22 15:26 Source: patient Mode of arrival: Ambulatory Limitations: No Limitations - History of Present Illness Initial comments: 61-year-old male with no metabolic or oncologic past medical history presents emergency department complaining OF A several day history of polyuria ,polydipsia, myalgia, weight loss of unknown etiology. He denies any urinary hesitancy decreased urinary flow prostate location pain he reports no hemoptysis no hematemesis hematochezia no hematuria no fever, chills, sweats -: Gradual Severity scale (0 -10): 7 Improves with: none Worsens with: none Associated Symptoms: denies other symptoms, loss of appetite, malaise. denies: chest pain, cough, diaphoresis - Related Data Home Medications Medication Instructions Recorded Confirmed Last Taken Omeprazole 1 tab PO DAILY 09/15/16 09/15/16 09/15/16 raNITIdine HCl [Zantac 150 MG TAB] 150 mg PO DAILY 09/15/16 09/15/16 09/15/16 Previous Rx's Medication Instructions Recorded Last Taken Type traMADoL [Ultram 50 MG tab] 50 mg PO Q6HR PRN #10 tablet 09/15/16 Unknown Rx Ondansetron [Zofran Odt] 4 mg PO Q8HR PRN #14 tab.rapdis 09/20/17 Unknown Rx Penicillin V Potassium 500 mg PO Q6HR #28 tablet 09/20/17 Unknown Rx traMADoL [Ultram] 50 mg PO Q6HR PRN #14 tablet 09/20/17 Unknown Rx Cyclobenzaprine [Flexeril] 10 mg PO TID PRN #30 tablet 01/13/18 Unknown Rx HYDROcodone/APAP 5-325 [[place] 1 each PO Q6HR PRN #10 tablet 01/13/18 Unknown Rx 5/325] Omeprazole 40 mg PO DAILY 30 Days #30 01/13/18 Unknown Rx capsule. Pantoprazole [Protonix TAB] 40 mg PO QDAY 30 Days #30 tablet 01/13/18 Unknown Rx Phenytoin Sodium Extended 300 mg PO QHS 30 Days #90 capsule 01/13/18 Unknown Rx [Dilantin] cephALEXin [Keflex] 500 mg PO BID 7 Days #14 capsule 05/17/18 Unknown Rx Metoclopramide [Reglan] 10 mg PO TID #21 tab 06/12/18 Unknown Rx diphenhydrAMINE [Benadryl CAP] 25 mg PO Q8HR PRN #21 capsule 06/12/18 Unknown Rx predniSONE [Deltasone] 40 mg PO QDAY #10 tab 06/12/18 Unknown Rx Erythromycin [Erythromycin Ophth 0.5 inch OS Q4H #5 day 03/08/22 Unknown Rx Oint] Ondansetron [Zofran ODT TAB] 8 mg PO Q8HR #20 tab.rapdis 05/23/22 Unknown Rx Allergies Allergy/AdvReac Type Severity Reaction Status Date / Time No Known Allergies Allergy Verified 06/12/18 18:54 ED Review of Systems ROS: Stated complaint: CRAMPS/WEIGHT LOSS/FREQUENT URINATION Other details as noted in HPI Comment: All other systems reviewed and negative ED Past Medical Hx - Past Medical History Previous Medical History?: Yes Additional medical history: stomach ulcer, GERD - Surgical History Past Surgical History?: Yes Additional Surgical History: R thumb - Social History Smoking Status: Current Every Day Smoker - Medications Home Medications: Home Medications Medication Instructions Recorded Confirmed Last Taken Type Omeprazole 1 tab PO DAILY 09/15/16 09/15/16 09/15/16 History raNITIdine HCl [Zantac 150 MG TAB] 150 mg PO DAILY 09/15/16 09/15/16 09/15/16 History traMADoL [Ultram 50 MG tab] 50 mg PO Q6HR PRN #10 tablet 09/15/16 Unknown Rx Ondansetron [Zofran Odt] 4 mg PO Q8HR PRN #14 tab.rapdis 09/20/17 Unknown Rx Penicillin V Potassium 500 mg PO Q6HR #28 tablet 09/20/17 Unknown Rx traMADoL [Ultram] 50 mg PO Q6HR PRN #14 tablet 09/20/17 Unknown Rx Cyclobenzaprine [Flexeril] 10 mg PO TID PRN #30 tablet 01/13/18 Unknown Rx HYDROcodone/APAP 5-325 [[place] 1 each PO Q6HR PRN #10 tablet 01/13/18 Unknown Rx 5/325] Omeprazole 40 mg PO DAILY 30 Days #30 01/13/18 Unknown Rx capsule. Pantoprazole [Protonix TAB] 40 mg PO QDAY 30 Days #30 tablet 01/13/18 Unknown Rx Phenytoin Sodium Extended 300 mg PO QHS 30 Days #90 capsule 01/13/18 Unknown Rx [Dilantin] cephALEXin [Keflex] 500 mg PO BID 7 Days #14 capsule 05/17/18 Unknown Rx Metoclopramide [Reglan] 10 mg PO TID #21 tab 06/12/18 Unknown Rx diphenhydrAMINE [Benadryl CAP] 25 mg PO Q8HR PRN #21 capsule 06/12/18 Unknown Rx predniSONE [Deltasone] 40 mg PO QDAY #10 tab 06/12/18 Unknown Rx Erythromycin [Erythromycin Ophth 0.5 inch OS Q4H #5 day 03/08/22 Unknown Rx Oint] Ondansetron [Zofran ODT TAB] 8 mg PO Q8HR #20 tab.rapdis 05/23/22 Unknown Rx ED Physical Exam - General Limitations: No Limitations General appearance: alert, in no apparent distress - Head Head exam: Present: atraumatic, normocephalic - Eye Eye exam: Present: normal appearance, PERRL, EOMI Pupils: Present: normal accommodation - ENT ENT exam: Present: normal exam, normal orophraynx, mucous membranes moist, TM's normal bilaterally - Neck Neck exam: Present: normal inspection - Respiratory Respiratory exam: Present: normal lung sounds bilaterally. Absent: respiratory distress, wheezes, rales - Cardiovascular Cardiovascular Exam: Present: regular rate, normal rhythm. Absent: systolic murmur, diastolic murmur, rubs, gallop - GI/Abdominal GI/Abdominal exam: Present: soft, normal bowel sounds. Absent: tenderness, guarding, hyperactive bowel sounds, hypoactive bowel sounds - Rectal Rectal exam: Present: deferred - Extremities Exam Extremities exam: Present: normal inspection - Back Exam Back exam: Present: normal inspection. Absent: CVA tenderness (R), CVA tenderness (L) - Neurological Exam Neurological exam: Present: alert, oriented X3, CN II-XII intact, normal gait - Psychiatric Psychiatric exam: Present: normal affect, normal mood - Skin Skin exam: Present: warm, dry, intact, normal color. Absent: rash ED Course Vital Signs 05/23/22 15:15 Temperature 98.1 F Pulse Rate 71 Respiratory 20 Rate Blood Pressure 125/86 [Right] O2 Sat by Pulse 100 Oximetry ED Medical Decision Making - Lab Data Result diagrams: 05/23/22 15:39 05/23/22 15:39 Critical care attestation.: If time is entered above; I have spent that time in minutes in the direct care of this critically ill patient, excluding procedure time. ED Disposition Clinical Impression: Polyuria, Nausea Disposition: 01 HOME / SELF CARE / HOMELESS Is pt being admited?: No Does the pt Need Aspirin: No Condition: Stable Instructions: Nausea, Adult, Urodynamic Testing, Urodynamic Testing, [id number] Prescriptions: Ondansetron [Zofran ODT TAB] 8 mg PO Q8HR #20 tab.rapdis Referrals: [facility] [Provider Group] - 3-5 Days [facility], [LAB/CONTRACT] - 3-5 Days Forms: Work/School Release Form(ED)
== END 2022-05-23 21:21 | disposition home or self-care (01) ==
LOC: ED 13:55
DX: R35.89 Other polyuria (principal); R11.0 Nausea; F17.200 Nicotine dependence, unspecified, uncomplicated; Z79.899 Other long term (current) drug therapy
CPT/HCPCS: 36415; 80053; 81001; 82962; 83735; 85025; 99283